=== PATIENT | female | born 1960 | race Caucasian/White ===

== ENCOUNTER → 2016-04-27 | Outpatient (CLI) | payer OTHER ==
[~2016-04-27] MED LIST: ALAVERT10 M1 PO; ALEVE 220MG220 MG PO; ARMOUR THYROID30 MG PO; B12; BENADRYL PO; CARDIZEM CD360 MG PO; COZAAR 25MG25 MG/TAB PO; CYMBALTA 60MG60 MG PO; FEOSOL65 MG PO; FOLIC ACID 40400 MCG PO; GLUCOSAMINE CHONDROI; INDERAL 20MG20 MG PO; KLONOPIN 1MG1 MG PO; LEXAPRO; MONOLAURIN PO; OSTEO-BI-FLEX 21 TAB PO; POLICOSANOL PO; PRESERVISION; PRILOSEC 20MG20 MG PO; SPORANOX100 MG PO; SYNTHROID0.075 MG/T PO; VITAMIN C500 MG PO; [UNRECOGNIZED DRUG - OTHER] PO
== END ==
LOC: BHSO 15:00
DX: F41.1 Generalized anxiety disorder (principal)

== ENCOUNTER → 2016-10-12 | Outpatient (CLI) | payer OTHER | LOC: BHSO 14:53 | DX: F33.1 Major depressive disorder, recurrent, moderate (principal) ==

== ENCOUNTER → 2017-04-14 | Outpatient (CLI) | payer OTHER | LOC: BHSO 14:53 | DX: F33.1 Major depressive disorder, recurrent, moderate (principal) | CPT/HCPCS: G0463 ==

== ENCOUNTER → 2017-07-13 | Outpatient (CLI) | payer OTHER | LOC: BHSO 12:57 | DX: F33.42 Major depressive disorder, recurrent, in full remission (principal) | CPT/HCPCS: G0463 ==

== ENCOUNTER → 2017-12-20 | Outpatient (CLI) | payer OTHER | LOC: MC.RAD 10:26 | DX: Z12.31 Encounter for screening mammogram for malignant neoplasm of breast (principal) ==

== ENCOUNTER → 2018-01-17 | Outpatient (CLI) | payer OTHER | LOC: BHSO 14:44 | DX: F33.42 Major depressive disorder, recurrent, in full remission (principal) | CPT/HCPCS: G0463 ==

== ENCOUNTER → 2018-07-19 | Outpatient (CLI) | payer OTHER | LOC: BHSO 13:32 | DX: F41.1 Generalized anxiety disorder (principal) | CPT/HCPCS: G0463 ==

== ENCOUNTER → 2019-01-17 | Outpatient (CLI) | payer OTHER | LOC: BHSO 13:56 | DX: F33.42 Major depressive disorder, recurrent, in full remission (principal) | CPT/HCPCS: G0463 ==

== ENCOUNTER → 2019-10-09 | Outpatient (CLI) | payer OTHER | LOC: BHSO 14:24 | DX: F33.42 Major depressive disorder, recurrent, in full remission (principal) | CPT/HCPCS: G0463 ==

== ENCOUNTER 2020-05-05 10:17 | Emergency (ER) | payer OTHER ==
[2007-01-04 07:05] VITALS: BP 125/73
[~2020-05-05] VITALS: Ht 154.9 cm; Wt 77.7 kg
[2020-05-05 10:28] VITALS: TEMP 98.2
[2020-05-05 11:12] LABS: BASO % 0.4 % (0.0-2.0); EOS % 0.4 % (0-4.0); GRAN # 3.3 (1.4-6.5); GRAN % 72.1 % (42.2-75.2); HEMOGLOBIN 11.5 g/dl (12.5-16.0); LYMPH # 0.7 (1.2-3.4); LYMPH % 14.2 % (20.0-51.0); MEAN CELL VOLUME 88 fl (80.0-100.0); MEAN CORPUSCULAR HEMOGLOBIN 29 pg (27.0-31.0); MEAN CORPUSCULAR HGB CONC 34 g/dl (33.0-37.0); MEAN PLATELET VOLUME 9.5 fl (7.4-10.4); MONO # 0.6 (0.1-0.6); MONO % 12.2 % (1.7-9.3); PLATELET COUNT 333 K/mm3 (130-400); RED BLOOD COUNT 3.92 M/mm3 (4.10-5.30); REDCELL DISTRIBUTION WIDTH-CV 12.7 % (11.5-14.5)
[2020-05-05 11:13] LABS: HEMATOCRIT 34.3 % (37.0-47.0)
[2020-05-05 11:22] LABS: ALBUMIN 3.8 gm/dL (3.5-5.0); BILIRUBIN,TOTAL 0.6 mg/dL (0.0-1.0); CALCIUM 8.9 mg/dL (8.4-10.2); CREATININE, serum 0.81 (0.52-1.25); POTASSIUM 3.6 mmol/L (3.4-5.0); TOTAL PROTEIN 6.9 gm/dL (6.4-8.2)
[2020-05-05] MEDS ORDERED: IMODIUM 2MG CAPS2 MG PO (12:21)
[2020-05-05 12:30] VITALS: BP 129/59; PULSE 88
== END 2020-05-05 13:08 | disposition home or self-care (01) ==
LOC: COL.ER 10:17
PROVIDERS: Physician Assistant
DX: S92.325A Nondisplaced fracture of second metatarsal bone, left foot, initial encounter for closed fracture (principal); S82.65XA Nondisplaced fracture of lateral malleolus of left fibula, initial encounter for closed fracture; R55 Syncope and collapse; E86.0 Dehydration; R19.7 Diarrhea, unspecified; I10 Essential (primary) hypertension; F32.9 Major depressive disorder, single episode, unspecified; Z88.2 Allergy status to sulfonamides; Z88.1 Allergy status to other antibiotic agents; X58.XXXA Exposure to other specified factors, initial encounter
CPT/HCPCS: J7030

== ENCOUNTER → 2020-08-26 | Outpatient (CLI) | payer OTHER ==
[~2020-08-26] MED LIST changes: +IMODIUM 2MG CAPS2 MG PO
== END ==
LOC: MC.RAD 13:31
DX: Z12.31 Encounter for screening mammogram for malignant neoplasm of breast (principal)

== ENCOUNTER 2021-10-05 13:21 | Outpatient (RCR) | payer OTHER, BC | END 2021-10-15 | disposition still patient (30) | LOC: WSPT | DX: M54.9 Dorsalgia, unspecified (principal); I10 Essential (primary) hypertension ==

== ENCOUNTER → 2021-10-08 | Outpatient (CLI) | payer OTHER | LOC: MC.RAD 11:07 | DX: Z12.31 Encounter for screening mammogram for malignant neoplasm of breast (principal) ==

== ENCOUNTER 2021-11-11 15:45 | Outpatient (RCR) | payer OTHER | END 2021-11-15 | disposition home or self-care (01) | LOC: WSPT | DX: M54.9 Dorsalgia, unspecified (principal) ==

== ENCOUNTER 2021-12-10 12:45 | Outpatient (RCR) | payer OTHER | END 2021-12-16 | disposition home or self-care (01) | LOC: WSPT | DX: M54.9 Dorsalgia, unspecified (principal); I10 Essential (primary) hypertension ==